=== PATIENT | male | born 1985 | race Caucasian/White ===

== ENCOUNTER 2020-09-30 17:11 | Emergency (ER) | payer SELFPAY ==
[2020-09-30] MEDS ORDERED: Lidocaine 1% PF 5 ML VIAL ONE (17:25)
== END 2020-09-30 18:38 | disposition home or self-care (01) ==
LOC: BURERS 17:11
DX: S61.011A Laceration without foreign body of right thumb without damage to nail, initial encounter (principal); F17.220 Nicotine dependence, chewing tobacco, uncomplicated; W26.8XXA Contact with other sharp object(s), not elsewhere classified, initial encounter
CPT/HCPCS: 12001